=== PATIENT | male | born 1950 | race Caucasian/White ===

== ENCOUNTER 2016-09-29 13:38 | Observation (INO) | payer OTHER ==
[~2016-09-29] VITALS: Ht 176.5 cm; Wt 65.2 kg
[~2016-09-29 13:38] MED LIST: ANAPROX DS550 M1 PO; TYLENOL ARTHRI650 M2 PO; VICODIN,LORT1 TABLET PO
[2016-09-29 13:51] LABS: HEMATOCRIT 45.7 % (38.0-50.0); MCH 29.2 PG (29.0-34.0); MCHC 32.8 G/DL (30.0-36.0); MCV 88.9 FL (86-99); PLATELET COUNT 168 K/uL (156-360); RBC DIS.WIDTH-CV 13.4 % (11.8-14.6); RBC DIS.WIDTH-SD 44.4 % (39-53); RED BLOOD COUNT 5.14 M/uL (4.00-5.50); WHITE BLOOD COUNT 6.1 K/uL (4.1-10.2)
[2016-09-29 13:59] LABS: CHLORIDE 105 mEq/L (99-109); POTASSIUM 4.3 mEq/L (3.7-5.4); SODIUM 141 mEq/L (136-147)
[2016-09-29 14:01] LABS: GLUCOSE 97 mg/dL (70-99)
[2016-09-29 14:02] LABS: ANION GAP 15 MEQ/L (2-14)
[2016-09-29 14:05] LABS: GFR ESTIMATE (CALCULATED) > 59 mL/min/
[2016-09-29 14:06] LABS: UREA NITROGEN (BUN) 9 mg/dL (9-23)
[2016-09-29 14:11] LABS: TROP-I INTERPRETATION NEGATIVE; TROPONIN-I 0.09 ng/mL (0.0-0.30)
[2016-09-29] MEDS ORDERED: ADVIL200 MG PO (14:52)
[2016-09-29] MEDS ORDERED: ASPIRIN81 M2 PO (14:53)
[2016-09-29 16:37] LABS: HDL CHOLESTEROL 40 MG/DL (Desirable>=40); LDL CHOLESTEROL 164 mg/dL (Desirable<100); NON-HDL CHOLESTEROL 184 mg/dL (Desirable<160); TOTAL CHOLESTEROL 224 mg/dL (Desirable<200); TRIGLYCERIDES 101 MG/DL (Normal: <150)
[2016-09-29 18:04] VITALS: BP 187/98
[2016-09-29 20:02] VITALS: BP 138/72
[2016-09-29 22:11] LABS: TROP-I INTERPRETATION NEGATIVE; TROPONIN-I 0.11 ng/mL (0.0-0.30)
[2016-09-30 00:15] VITALS: BP 137/90
[2016-09-30 03:27] VITALS: BP 137/90
[2016-09-30 03:50] LABS: TROP-I INTERPRETATION NEGATIVE; TROPONIN-I 0.12 ng/mL (0.0-0.30)
[2016-09-30 08:55] VITALS: BP 163/92
[2016-09-30] MEDS ORDERED: LISINOPRIL20 MG PO (09:26)
[2016-09-30] MEDS ORDERED: NITROGLYCERIN0.4 MG SL (09:26)
[2016-09-30] MEDS ORDERED: ATORVASTATIN CA40 MG PO (09:26)
== END 2016-09-30 10:53 | disposition home or self-care (01) ==
LOC: EME 13:38 → EDOF 15:30 → 5WEST 17:24
PROVIDERS: Emergency Medicine; Internal Medicine
DX: I20.9 Angina pectoris, unspecified (principal); I10 Essential (primary) hypertension; R94.31 Abnormal electrocardiogram [ECG] [EKG]; E78.5 Hyperlipidemia, unspecified; Z82.49 Family history of ischemic heart disease and other diseases of the circulatory system; F17.210 Nicotine dependence, cigarettes, uncomplicated
CPT/HCPCS: 71010; 80048; 80061; 83880; 84484; 85027; 93005; 99202; 99281; 99285; G0378; J1650

== ENCOUNTER 2016-10-09 11:13 | Day surgery (SDC) | payer OTHER ==
[~2016-10-09] VITALS: Ht 176.5 cm; Wt 64.9 kg
[~2016-10-09 11:13] MED LIST changes: +ADVIL200 MG PO; +ASPIR-LOW81 MG PO; +ASPIRIN81 M2 PO; +ATORVASTATIN CA40 MG PO; +LIPITOR40 MG PO; +LISINOPRIL20 MG PO; +NITROGLYCERIN0.4 MG SL
== END 2016-10-09 18:35 | disposition home or self-care (01) ==
LOC: CATH 11:13
PROC: B2151ZZ Fluoroscopy of Left Heart using Low Osmolar Contrast (ICD-10-PCS; principal; 2016-10-09)
PROC: B2111ZZ Fluoroscopy of Multiple Coronary Arteries using Low Osmolar Contrast (ICD-10-PCS; principal; 2016-10-09)
PROC: 4A023N7 Measurement of Cardiac Sampling and Pressure, Left Heart, Percutaneous Approach (ICD-10-PCS; principal; 2016-10-09)
DX: I25.119 Atherosclerotic heart disease of native coronary artery with unspecified angina pectoris (principal); I25.82 Chronic total occlusion of coronary artery; I25.5 Ischemic cardiomyopathy; I10 Essential (primary) hypertension; E78.2 Mixed hyperlipidemia; F17.200 Nicotine dependence, unspecified, uncomplicated; Z82.49 Family history of ischemic heart disease and other diseases of the circulatory system; Z79.82 Long term (current) use of aspirin
CPT/HCPCS: C1769; C1887; J1644; J2250; J3010

== ENCOUNTER 2017-12-22 12:21 | Inpatient (IN) | payer OTHER ==
[~2017-12-22] VITALS: Ht 175.3 cm; Wt 66.2 kg
[2017-12-22 13:09] LABS: HEMATOCRIT 42.4 % (38.0-50.0); HEMOGLOBIN 14.1 G/DL (12.5-16.6); MCH 30.4 PG (29.0-34.0); MCHC 33.3 G/DL (30.0-36.0); MCV 91.4 FL (86-99); PLATELET COUNT 135 K/uL (156-360); RBC DIS.WIDTH-SD 46.8 % (39-53); RED BLOOD COUNT 4.64 M/uL (4.00-5.50); WHITE BLOOD COUNT 6.7 K/uL (4.1-10.2)
[2017-12-22 13:14] LABS: INTER. NORMALIZED RATIO 1.1
[2017-12-22 13:17] LABS: CHLORIDE 104 mEq/L (99-109); POTASSIUM 5.2 mEq/L (3.7-5.4); PTT 29.7 SEC (25-37); SODIUM 137 mEq/L (136-147)
[2017-12-22 13:19] LABS: GLUCOSE 115 mg/dL (70-99)
[2017-12-22 13:23] LABS: CREATININE 1.1 mg/dL (0.6-1.3); GFR ESTIMATE (CALCULATED) > 59 mL/min/ (58.99-99999)
[2017-12-22 13:24] LABS: UREA NITROGEN (BUN) 22 mg/dL (9-23)
[2017-12-22 13:30] LABS: TROP-I INTERPRETATION NEGATIVE; TROPONIN-I 0.02 ng/mL (0.0-0.30)
[2017-12-22] MEDS ORDERED: LOPRESSOR25 MG PO (14:36)
[2017-12-22 15:33] LABS: TROP-I INTERPRETATION NEGATIVE; TROPONIN-I 0.02 ng/mL (0.0-0.30)
[2017-12-22 16:03] LABS: HDL CHOLESTEROL 37 MG/DL (Desirable>=40); LDL CHOLESTEROL 127 mg/dL (Desirable<100); NON-HDL CHOLESTEROL 144 mg/dL (Desirable<160); TOTAL CHOLESTEROL 181 mg/dL (Desirable<200); TRIGLYCERIDES 84 MG/DL (Normal: <150)
[2017-12-22 16:05] VITALS: BP 140/86
[2017-12-22 18:44] LABS: TROP-I INTERPRETATION NEGATIVE; TROPONIN-I 0.01 ng/mL (0.0-0.30)
[2017-12-22 19:08] VITALS: BP 132/103
[2017-12-22 23:52] VITALS: BP 125/84
[2017-12-23 01:22] LABS: TROP-I INTERPRETATION NEGATIVE; TROPONIN-I 0.01 ng/mL (0.0-0.30)
[2017-12-23 07:37] VITALS: BP 122/95
[2017-12-23 11:50] VITALS: BP 121/74
[2017-12-23 15:53] VITALS: BP 106/61
[2017-12-23 20:16] VITALS: BP 121/88
[2017-12-23 23:41] VITALS: BP 119/82
[2017-12-24 04:00] VITALS: BP 131/92
[2017-12-24 07:19] VITALS: BP 131/76
[2017-12-24 11:48] VITALS: BP 119/77
[2017-12-24 16:09] VITALS: BP 134/77
[2017-12-24 16:18] LABS: TYPE OF FLUID PLEURAL
[2017-12-24 17:36] LABS: BODY FLUID GLUCOSE 131 MG/DL; BODY FLUID LDH 46 IU/L; BODY FLUID PROTEIN < 3.0 G/DL
[2017-12-24 17:38] LABS: APPEARANCE YELLOW-CLEAR; BODY FLUID EOSINOPHILS 0 % (0-25); BODY FLUID RBC'S 2000 /MM^3 (0-100); BODY FLUID WBC'S 338 /MM^3 (0-500); MONONUCLEAR WBC'S 42 %; POLYNUCLEAR WBC'S 58 % (0-25)
[2017-12-24 20:33] VITALS: BP 128/64
[2017-12-25 00:51] VITALS: BP 129/77
[2017-12-25 04:53] VITALS: BP 133/88
[2017-12-25 07:15] VITALS: BP 136/79
[2017-12-25 12:35] VITALS: BP 129/71
[2017-12-25 15:56] VITALS: BP 123/84
[2017-12-25 19:39] VITALS: BP 130/87
[2017-12-26 12:15] LABS: HEMOGLOBIN A1c (GLYCOHEMOGLOB) 5.8 % (Below 5.7)
== END 2017-12-25 21:32 | disposition left against medical advice (07) | DRG 308 ==
LOC: EME 12:21 → EDOF 14:06 → ENRESERV 14:10 → 4EAST 15:57
PROVIDERS: Emergency Medicine; Hospitalist; Radiology Diagnostic Radiology
PROC: 0W993ZZ Drainage of Right Pleural Cavity, Percutaneous Approach (ICD-10-PCS; principal; 2017-12-22)
DX: I48.91 Unspecified atrial fibrillation (principal); J18.9 Pneumonia, unspecified organism; F17.210 Nicotine dependence, cigarettes, uncomplicated; I11.0 Hypertensive heart disease with heart failure; I25.10 Atherosclerotic heart disease of native coronary artery without angina pectoris; E78.5 Hyperlipidemia, unspecified; J44.0 Chronic obstructive pulmonary disease with (acute) lower respiratory infection; J44.9 Chronic obstructive pulmonary disease, unspecified; Z53.21 Procedure and treatment not carried out due to patient leaving prior to being seen by health care provider
CPT/HCPCS: 71045; 71275; 76942; 80048; 80061; 82945; 83036; 83605; 83615 91; 84157; 84443; 84484; 85027; 85610; 85730; 87040; 87070; 87075; 87205; 87449; 88108; 88305; 89051; 93005; 93306; 94640; 94640 76; 94760; 94799; 99202; 99281; 99284; J0295; J0456; J0696; J2930; J7050; J7512